=== PATIENT | female | born 1990 | race Caucasian/White ===

== ENCOUNTER 2022-11-12 20:52 | Emergency (ER) | payer MEDICAID ==
[~2022-11-12] VITALS: Ht 160 cm; Wt 91.6 kg
[2022-11-12 21:01] VITALS: BP 131/83
--- NOTE | 2022-11-12 21:21 | NUR ---
Pt to bed 1
--- NOTE | 2022-11-12 21:23 | NUR ---
Patient resting in bed, A/Ox4, chest rise and fall symmetrical, no s/s distress, on monitor.
[2022-11-12] MEDS ORDERED: LIDOCAINE 1% 500 MG/ 50 ML VIAL INJ ONE (21:30)
[2022-11-12] MEDS ORDERED: LIDOCAINE MPF 1% 5 ML ONE (21:37)
--- NOTE | 2022-11-12 22:00 | NUR ---
BAN Dockery performing procedure, patient tolerating procedure well, no s/s of distress.
[2022-11-12] MEDS ORDERED: IBUP-2213 PO (22:33)
[2022-11-12] MEDS ORDERED: CEPH-588 PO (22:33)
[2022-11-12] MEDS ORDERED: SULF-59 PO (22:33)
[2022-11-12 22:56] VITALS: BP 121/74
== END 2022-11-12 22:56 | disposition home or self-care (01) ==
LOC: MED 20:52
DX: L02.211 Cutaneous abscess of abdominal wall (principal); R03.0 Elevated blood-pressure reading, without diagnosis of hypertension; Z79.899 Other long term (current) drug therapy
CPT/HCPCS: 10060; 81025; 99284; J2001